=== PATIENT | male | born 1945 | race Caucasian/White ===

== ENCOUNTER 2022-09-23 10:40 | Emergency (ER) | payer MEDICARE, OTHER ==
[~2022-09-23] VITALS: Ht 172.7 cm; Wt 73.5 kg
--- NOTE | 2022-09-23 10:55 | NUR ---
[id number] FROM HOME FOR WITNESSED SYNCOPE. NO HEAD TRAUMA ENDORSED.BG ON SCENE WAS 114
[2022-09-23 11:22] LABS: BASOPHILS # (AUTO) 0.1 K/uL (0.0-0.2); BASOPHILS % (AUTO) 0.9 % (0.0-2.0); EOSINOPHILS % (AUTO) 1.9 % (0.0-6.0); HEMATOCRIT 47 % (39-51); HEMOGLOBIN 15.1 g/dL (13.5-17.5); LYMPHOCYTES # (AUTO) 2.7 K/uL (0.8-4.8); LYMPHOCYTES % (AUTO) 34.6 % (20.0-44.0); MEAN CORPUSCULAR HGB CONC 32 g/dl (31.0-36.0); MEAN CORPUSCULAR VOLUME 91 fL (80-96); MONOCYTES # (AUTO) 0.5 K/uL (0.1-1.30); MONOCYTES % (AUTO) 6.9 % (2.0-12.0); NEUTROPHILS # (AUTO) 4.4 K/uL (1.8-8.9); NEUTROPHILS % (AUTO) 55.7 % (43.0-81.0); PLATELET COUNT (AUTO) 308 K/uL (150-450); RED BLOOD CELL COUNT(AUTO) 5.11 MIL/uL (4.5-6.0); WHITE BLOOD COUNT (AUTO) 7.9 K/uL (4.3-11.0)
[2022-09-23 11:47] LABS: CALCIUM, SERUM 9.1 mg/dL (8.5-10.1); CARBON DIOXIDE 29 mmol/L (21-32); CHLORIDE 103 mmol/L (98-107); CREATININE 1.3 mg/dL (0.6-1.3); GLUCOSE 152 mg/dL (74-106); POTASSIUM 4.2 mmol/L (3.5-5.1); SODIUM SERUM 139 mmol/L (136-145); UREA NITROGEN, BLOOD 24 mg/dL (7-18)
[2022-09-23 11:53] LABS: ALANINE AMINOTRANSFERASE 30 U/L (12-78); ALBUMIN 4.1 g/dL (3.4-5.0); ALKALINE PHOSPHATASE 83 U/L (46-116); ASPARTATE AMINOTRANSFERASE 26 U/L (15-37); BILIRUBIN,DIRECT 0.2 mg/dL (0.0-0.2); BILIRUBIN,TOTAL 0.8 mg/dL (0.2-1.0); TOTAL PROTEIN, SERUM 7.7 g/dL (6.4-8.2)
[2022-09-23] MEDS ORDERED: LORA10TA7 PO (12:37)
[2022-09-23] MEDS ORDERED: ATOR40TA PO (12:37)
[2022-09-23] MEDS ORDERED: DOCU100C58 PO (12:37)
[2022-09-23] MEDS ORDERED: TAMS-12 PO (12:37)
[2022-09-23] MEDS ORDERED: LEVO112T5 PO (12:37)
[2022-09-23] MEDS ORDERED: CLOP75TA15 PO (12:37)
--- NOTE | 2022-09-23 13:45 | NUR ---
RESTING COMFORTABLY , SEEN SPEAKING WITH DAUGHTER AT THE BEDSIDE , NO SIGNS AND SYMPTOMS OF DISTRESS. CARE CONTINUES.
--- NOTE | 2022-09-23 14:19 | NUR ---
IV removed. Catheter intact and site benign. Pressure and 4x4 applied to site. No bleeding noted.
--- NOTE | 2022-09-23 14:19 | NUR ---
Patient discharged to home in stable condition. Written and verbal after care instructions given. Patient verbalizes understanding of instruction.
[2022-09-23 14:20] VITALS: BP 126/81
== END 2022-09-23 14:21 | disposition home or self-care (01) ==
LOC: ER 10:42
DX: R55 Syncope and collapse (principal); I10 Essential (primary) hypertension; E11.9 Type 2 diabetes mellitus without complications; Z79.899 Other long term (current) drug therapy
CPT/HCPCS: 36415; 71045-TC; 80048-TC; 80076-TC; 84484-TC; 85025-TC